=== PATIENT | female | born 1990 | race Caucasian/White ===

== ENCOUNTER 2023-10-29 07:06 | Day surgery (SDC) | payer BC, OTHER ==
[2023-10-29 07:47] LABS: BASOPHILS % (AUTO) 0.4 % (0.0-2.0); EOSINOPHILS # (AUTO) 0.2 K/uL (0.0-0.7); EOSINOPHILS % (AUTO) 2.2 % (0.0-7.0); HEMATOCRIT 34.3 % (31.2-41.9); HEMOGLOBIN 11.3 g/dL (10.9-14.3); LYMPHOCYTES # (AUTO) 1.9 K/uL (0.8-4.8); LYMPHOCYTES % (AUTO) 25.6 % (20.5-51.5); MEAN CORPUSCULAR HEMOGLOBIN 27.4 uug (24.7-32.8); MEAN CORPUSCULAR HGB CONC 33 g/dL (32.3-35.6); MEAN CORPUSCULAR VOLUME 83.2 fL (75.5-95.3); MONOCYTES # (AUTO) 0.6 K/uL (0.1-1.30); MONOCYTES % (AUTO) 7.6 % (0.0-11.0); NEUTROPHILS # (AUTO) 4.8 K/uL (1.8-8.9); NEUTROPHILS % (AUTO) 64.2 % (38.5-71.5); PLATELET COUNT (AUTO) 257 K/uL (179-408); RED BLOOD CELL COUNT(AUTO) 4.12 MIL/uL (3.63-4.92); RED CELL DISTRIBUTION WIDTH 15.7 % (12.3-17.7); WHITE BLOOD COUNT (AUTO) 7.5 K/uL (3.8-11.8)
[2023-10-29 07:50] LABS: *BILIRUBIN,URIN NEGATIVE (NEGATIVE); *CLARITY,URINE CLEAR (CLEAR); *COLOR,URINE YELLOW (YELLOW); *KETONES,URINE NEGATIVE (NEGATIVE); *PROTEIN,URINE TRACE (NEGATIVE); *UROBILINOGEN,URINE 0.2 E.U./dl (NORMAL); LEUKOCYTE ESTERASE ,URINE NEGATIVE (NEGATIVE); NITRITE, URINE NEGATIVE (NEGATIVE); UGLUCOSE NEGATIVE (NEGATIVE)
[2023-10-29 07:56] LABS: *URINE HCG, QUAL NEGATIVE (NEGATIVE)
[2023-10-29 07:58] LABS: *BLOOD, URINE TRACE (NEGATIVE)
[2023-10-29 07:59] LABS: CALCIUM 8.7 mg/dL (8.5-10.1); CREATININE 0.6 mg/dL (0.6-1.3); POTASSIUM 4.4 mmol/L (3.5-5.1)
[2023-10-29 08:00] LABS: DIFFERENTIAL COMMENT 1
[2023-10-29] MEDS ORDERED: PROPOFOL 200 MG/20 ML BOTTLE ONE (08:00)
[2023-10-29 08:29] LABS: BILIRUBIN,TOTAL 0.4 mg/dL (0.2-1.0)
[2023-10-29 08:30] LABS: ALBUMIN 3.2 g/dL (3.4-5.0); TOTAL PROTEIN, SERUM 7.8 g/dL (6.4-8.2)
[2023-10-29 09:23] LABS: BACTERIA,URINE MODERATE /HPF (NONE SEEN); RBC,URINE 0-3 /HPF (0-3); SQUAMOUS EPITHELIAL CELL,UR FEW /HPF (NONE SEEN); URINE AMORPHOUS URATE MANY /HPF; WBC,URINE 0-3 /HPF (0-3)
[2023-10-29 10:00] VITALS: TEMP 98
== END 2023-10-29 10:05 | disposition home or self-care (01) ==
LOC: DS 07:06
PROVIDERS: ATTEND Internal Medicine Gastroenterology
DX: R13.10 Dysphagia, unspecified (principal); D64.9 Anemia, unspecified; K29.50 Unspecified chronic gastritis without bleeding; B96.81 Helicobacter pylori [H. pylori] as the cause of diseases classified elsewhere; Z79.899 Other long term (current) drug therapy; Z98.890 Other specified postprocedural states; Z98.0 Intestinal bypass and anastomosis status
CPT/HCPCS: 36415; 84703; 85025; 85730; 88313-TC; 88342; A4663; J3490; J7040; J7120

== ENCOUNTER 2023-12-30 07:16 | Inpatient (IN) | payer BC, OTHER ==
[~2023-12-30] VITALS: Ht 172.7 cm; Wt 144.2 kg
[~2023-12-30 07:16] MED LIST: FENTANYL CITRATE 250 MCG/5 ML AMPUL ONE; HYDROMORPHONE 2 MG/1 ML DISP.SYRIN ONE; MIDAZOLAM HCL 2 MG/2 ML VIAL ONE; ROCURONIUM BROMIDE 50 MG/5 ML VIAL ONE; SEVOFLURANE 250 ML BOTTLE ONE
[2023-12-30 07:58] LABS: *URINE HCG, QUAL NEGATIVE (NEGATIVE)
[2023-12-30] MEDS: CEFAZOLIN 2 G in IV DEXTROSE 5% 100 ML IV ONE (09:00)
[2023-12-30] MEDS ORDERED: ROCURONIUM BROMIDE 50 MG/5 ML VIAL ONE (09:47)
[2023-12-30] MEDS ORDERED: BUPIVACAINE/EPI PF 0.25% 10 ML VIAL IJ ONE (09:48)
[2023-12-30] MEDS ORDERED: BUPIVACAINE/EPI PF 0.5% 10 ML VIAL ONE (11:51)
[2023-12-30] MEDS ORDERED: ONDANSETRON 4 MG/2 ML VIAL ONE ×2 (12:21→12:29)
[2023-12-30] MEDS ORDERED: METOCLOPRAMIDE HCL 10 MG/2 ML VIAL ONE (12:35)
[2023-12-30] MEDS ORDERED: HYDROMORPHONE 1 MG/1 ML DISP.SYRIN ONE (12:43)
[2023-12-30 14:51] VITALS: BP 104/54; TEMP 97.4; O2SAT 96
[2023-12-30] MEDS ORDERED: MELO15TA13 PO (14:51)
[2023-12-30] MEDS ORDERED: CHOL500062 PO (14:51)
[2023-12-30] MEDS ORDERED: MULT-647 PO (14:52)
[2023-12-30] MEDS ORDERED: ONDANSETRON HCL 4 MG TABLET PO PRN (15:00)
[2023-12-30] MEDS ORDERED: ONDANSETRON INJ 8 MG in IV NORMAL SALINE 50 ML IV PRN (15:00)
[2023-12-30] MEDS: PANTOPRAZOLE SODIUM 40 MG VIAL IV SCH (15:19)
[2023-12-30] MEDS: HYDROMORPHONE 1 MG/1 ML DISP.SYRIN IV PRN ×2 (15:20→23:47)
[2023-12-30] MEDS: METOCLOPRAMIDE HCL 10 MG/2 ML VIAL IV SCH (17:04)
[2023-12-30] MEDS: HYDROCODONE/APAP 5-325MG TABLET PO PRN (17:27)
[2023-12-30 19:39] VITALS: BP 109/65; TEMP 97.6; O2SAT 98
[2023-12-31] MEDS: GABAPENTIN 300 MG CAPSULE PO SCH (00:19)
[2023-12-31] MEDS: ACETAMINOPHEN ES 500 MG TABLET PO PRN (00:21)
[2023-12-31 04:12] VITALS: O2SAT 98
[2023-12-31 05:40] VITALS: BP 107/63; TEMP 98.1; O2SAT 96
[2023-12-31 06:52] LABS: BASOPHILS % (AUTO) 0.2 % (0.0-2.0); EOSINOPHILS % (AUTO) 0.3 % (0.0-7.0); HEMATOCRIT 32.4 % (31.2-41.9); HEMOGLOBIN 10.9 g/dL (10.9-14.3); LYMPHOCYTES # (AUTO) 2.1 K/uL (0.8-4.8); LYMPHOCYTES % (AUTO) 16.7 % (20.5-51.5); MEAN CORPUSCULAR HEMOGLOBIN 27.2 uug (24.7-32.8); MEAN CORPUSCULAR HGB CONC 34 g/dL (32.3-35.6); MEAN CORPUSCULAR VOLUME 80.9 fL (75.5-95.3); MONOCYTES # (AUTO) 0.8 K/uL (0.1-1.30); MONOCYTES % (AUTO) 6.4 % (0.0-11.0); NEUTROPHILS # (AUTO) 9.4 K/uL (1.8-8.9); NEUTROPHILS % (AUTO) 76.4 % (38.5-71.5); PLATELET COUNT (AUTO) 262 K/uL (179-408); RED BLOOD CELL COUNT(AUTO) 4.01 MIL/uL (3.63-4.92); RED CELL DISTRIBUTION WIDTH 14.9 % (12.3-17.7); WHITE BLOOD COUNT (AUTO) 12.3 K/uL (3.8-11.8)
[2023-12-31 07:04] LABS: DIFFERENTIAL COMMENT 1
[2023-12-31 07:16] LABS: THYROID STIMULATING HORMONE 1.382 mIU/mL (0.358-3.740)
[2023-12-31 07:38] LABS: BILIRUBIN,TOTAL 0.4 mg/dL (0.2-1.0); CALCIUM 8.3 mg/dL (8.5-10.1); CREATININE 0.6 mg/dL (0.6-1.3); MAGNESIUM 2.1 mg/dL (1.8-2.4); PHOSPHOROUS 3.2 mg/dL (2.5-4.9); POTASSIUM 3.7 mmol/L (3.5-5.1); TOTAL PROTEIN, SERUM 7.6 g/dL (6.4-8.2)
[2023-12-31] MEDS: MULTIVITAMINS,THERAPEUTIC TABLET PO SCH (08:10)
[2023-12-31] MEDS: CHOLECALCIFEROL 1,000 UNIT TABLET PO SCH (08:10)
[2023-12-31] MEDS ORDERED: DIATR MEGLU/DIATRIZOATE SODIUM 30 ML BOTTLE ONE (10:51)
[2023-12-31 11:18] VITALS: BP 124/82; TEMP 98.7; O2SAT 96
[2023-12-31 15:20] VITALS: BP 125/72; TEMP 98.2; O2SAT 94
[2023-12-31] MEDS: METOCLOPRAMIDE HCL 10 MG TABLET PO SCH (17:33)
[2024-01-01] MEDS ORDERED: PANTOPRAZOLE ORAL SUSPENSION 40 MG SUSPDR.PKT PO SCH (07:00)
== END 2023-12-31 18:10 | disposition home or self-care (01) | DRG 621 ==
LOC: DS 07:16 → MEDSURG3 14:19
PROVIDERS: ADMIT Internal Medicine; ATTEND Internal Medicine
PROC: 0DB64Z3 Excision of Stomach, Percutaneous Endoscopic Approach, Vertical (ICD-10-PCS; principal; 2023-12-30)
PROC: 0BQT4ZZ Repair Diaphragm, Percutaneous Endoscopic Approach (ICD-10-PCS; 2023-12-30)
PROC: 0FB04ZX Excision of Liver, Percutaneous Endoscopic Approach, Diagnostic (ICD-10-PCS; 2023-12-30)
PROC: 0DJ08ZZ Inspection of Upper Intestinal Tract, Via Natural or Artificial Opening Endoscopic (ICD-10-PCS; 2023-12-30)
DX: E66.01 Morbid (severe) obesity due to excess calories (principal); Z68.42 Body mass index [BMI] 45.0-49.9, adult; K44.9 Diaphragmatic hernia without obstruction or gangrene; G47.33 Obstructive sleep apnea (adult) (pediatric); K76.0 Fatty (change of) liver, not elsewhere classified; Z86.79 Personal history of other diseases of the circulatory system; K21.9 Gastro-esophageal reflux disease without esophagitis; K76.9 Liver disease, unspecified
CPT/HCPCS: 36415; 83550; 83735; 84100; 84443; 84703; 85025; 94760; A4649; A4663; A9150; C9113; G0378; J0690; J1170; J2250; J2405; J2765; J3010; J3490; J7120; J8597; Q9963